=== PATIENT | male | born 1985 | race Caucasian/White ===

== ENCOUNTER 2025-08-09 22:33 | Emergency (ER) | payer MEDICAID, SELFPAY ==
[2025-08-09 22:39] VITALS: BP 160/95; PULSE 90; RESP 16; TEMP 36.8; O2SAT 97
[2025-08-09 22:42] VITALS: BP 160/95; PULSE 90; RESP 16; TEMP 36.8; O2SAT 97
--- NOTE | 2025-08-09 23:15 | ED.GENADUL_ITS ---
Discharge Plan Disposition Patient Disposition: Against Medical Advice Condition: Stable Discharge Details Clinical Impression: Cat bite of middle finger Primary Care Provider: None,None ED Provider: Nancy Smiley Home Meds and New Rx's Prescriptions: New amoxicillin-pot clavulanate 875-125 mg tablet 1 tab PO BID 9 Days Qty: 18 0RF Discharge Instructions Instructions: Animal Bites ED Additional Instructions: You were seen in the emergency department today for evaluation of a cat bite. In our department you to full physical examination performed, your wound was l oosely closed with 4 sutures that need to be removed in 7 to 10 days. As we discussed, you would benefit from treatment with the rabies vaccine series given that this was a feral cat that is not able to be observed, and at this time you have declined this intervention. You have also declined your tetanus vaccine. I did provide you with a prescription for antibiotics and strongly recommend that you take the entire course as Bites have a very high risk of getting infected. You understand that the risks of refusing these intervention include infection of your finger that may lead to systemic infection known as sepsis, loss of the finger, severe illness or disability, and in the case of rabies, tetanus, and severe sepsis can lead to . You understand that you can return to the emergency department at any time to receive care, those certainly rabies vaccines lose effectiveness over time after exposure. Please keep the area clean and dry, use antibiotic ointment at least once per day for the first 5 to 7 days, and keep it covered with a clean dressing. You were started on antibiotics and should take all this medication until it is gone, even if you start to feel better. If you notice signs of infection such as redness streaking up your finger and hand, pus draining from the area, or fever please return to the emergency department immediately for reevaluation. Please follow-up with your primary care provider in the next few days to discuss this visit and any symptoms that change, worsen, or persist. Thank you for allowing us to be part of your care. HPI General Mode of arrival: ambulatory . Date/Time Provider Initiated Documentation: 08/09/25 22:39 . Limitations to Documentation: no limitations . Information obtained by: patient and old records reviewed . HPI Narrative: This is a 39-year-old male patient presenting for evaluation of a cat bite. The patient states that a stray cat got into his house and he was trying to get it out, it bit and tore at his right middle finger. He states that he immediately rinsed it with cold water, bleeding was controlled with direct pressure and gauze. He states that the cat ran away and is not known to him to be vaccinated. He states that he did not sustain any injuries in any other areas, thinks his last tetanus shot was more than 10 years ago, has otherwise been in his normal state of health. Related Data Home Medications ?Medication ?Instructions ?Recorded ?Confirmed amoxicillin 875 mg-potassium 1 tab PO BID 9 days #18 t abs 08/09/25 clavulanate 125 mg tablet Previous Rx's ?Medication ?Instructions ?Recorded amoxicillin 875 mg-potassium 1 tab PO BID 9 days #18 t abs 08/09/25 clavulanate 125 mg tablet Allergies Allergy/AdvReac Type Severity Reaction Status Date / Time No Known Allergies Allergy Verified 08/09/25 22:46 General Stated Complaint: AnimalBite SUSU: 3 Exam Narrative Exam Narrative: Gen: Awake and alert, in no apparent distress HEENT: Non-icteric sclera Neck: Supple Lungs: No apparent respiratory distress, normal respiratory effort. CV: Appears well perfused Abdomen: Non-distended MSK: Moves 4 extremities without apparent limitation in ROM. The patient's right middle finger has a laceration across the distal pad, with exposure of placido pose tissue and some shards of macerated skin. He does have a abrasion to the very tip of the third middle finger. He has full range of motion and full resisted flexion at both the DIP and PIP, without active bleeding. Brisk capillary refill and no reported sensory deficits. Skin: Visualized skin without rashes, cyanosis. Neuro: Normal Gait, no obvious focal deficits or facial asymmetry. Speaks in full, clear sentences. Psych: Appropriate for situation. Course Vital Signs Vital signs: Vital Signs Temperature 36.8 C 08/09/25 22:39 Pulse 90 08/09/25 22:39 Respiratory Rate 08/09/25 22:39 Blood Pressure 160/95 H 08/09/25 22:39 Pulse Oximetry 97 08/09/25 22:39 Temperature 36.8 C 08/09/25 22:42 Temperature Source Tympanic 08/09/25 22:42 Pulse 90 08/09/25 22:42 Respiratory Rate 16 08/09/25 22:42 Blood Pressure 160/95 H 08/09/25 22:42 Blood Pressure Position Sitting 08/09/25 22:42 Pulse Oximetry 97 08/09/25 22:42 Oxygen Delivery Method Room Air 08/09/25 22:42 Oxygen Flow Rate 0 08/09/25 22:42 Pain Level 4 08/09/25 22:42 Procedure Laceration Laceration 1: Date of Procedure: 08/10/25 Time of procedure: 22:40 Provider that performed the procedure: Nancy Smiley Standard Time Out Performed: No Patient Consented: Verbally Site: hand Side (If applicable): right Description: linear Depth: simple, single layer Pre-repair:: wound explored, irrigated extensively, deep structures intact and wound margins revised Skin layer closed with: nylon Suture size: 5-0 Number of sutures:: 4 Technique: simple, interrupted Complications: None Procedure Description/Note: After anesthetization with 2 mL of lido 1% without epi, the wound was thoroughly cleansed and the macerated tissue and edges were clipped away. The wound was thoroughly explored, the distal tendon is intact, and the adipose tissue was replaced within the wound bed. The wound edges were loosely approximated with 4 sutures as noted above, the wound was hemostatic at the completion of this procedure with good cosmetic outcome achieved. The wound was dressed with bacitracin and an adhesive bandage. Medical Decision Making This is a 39-year-old male patient presenting for evaluation after cat bite. My differential includes but is not limited to laceration and soft tissue injury, no evidence for tendon injury, the wound was thoroughly cleansed and I do not note any evidence of foreign body, mechanism less concerning for fracture. Certainly considered exposure to rabies given the fact that this was an outdoor cat, and they do not have any ability to monitor this animal for development of symptoms. Finally, I considered potential for infection, though the brief duration of symptoms is reassuring against active infection at this time. The laceration was thoroughly cleansed, and repaired/loosely approximated as noted above. The patient tolerated this procedure well. Initially the patient was amenable to receiving rabies vaccines, immunoglobulin, and tetanus booster. Unfortunately, when those medications were brought to his room to be administered, he declined and states that he wants to do his own research first. I had an extended conversation with this patient regarding this AGAINST MEDICAL ADVICE decision, given the time sensitive nature of rabies immunoglobulin and vaccine administration. Additionally, the patient states that he is not sure if he wants to take the antibiotics. These were provided to him regardless given the very high risk of infection in these wounds. The patient understands that the risks of refusing the recommended treatment include threat to life and limb, localized or systemic infection, development of rabies or tetanus which could lead to neuro compromise, hospitalization, and . The patient understands that he can always return to care for reevaluation if he decides to proceed with vaccination. I counseled him to take all of the antibiotic provided (Augmentin) until it is gone, even if he starts to feel better, and counseled him on wound care and suture removal in 7 to 10 days. The patient left our facility after signing AGAINST MEDICAL ADVICE paperwork, demonstrates capacity to make this choice and had an opportunity to have all questions answered. Remained hemodynamically appropriate while under my care. Nancy Smiley MD [facility] Social History Smoking/Tobacco Use Status: Current every day Tobacco Type: cigarettes Smoking risk assessment performed?: Yes Alcohol Intake: never Drug use: Never Substance use type: does not use Do you feel safe at home: Yes Do you feel safe in your relationship?: Yes
[2025-08-09] MEDS: Amox. 875/Clav. 125, 2 TABS/BTL 1 TAB PO (23:48)
== END 2025-08-09 23:52 | disposition left against medical advice (07) ==
PROVIDERS: Emergency Provider Emergency Medicine
DX: S60.472A Other superficial bite of right middle finger, initial encounter (principal); Z23 Encounter for immunization; W55.01XA Bitten by cat, initial encounter; Y93.89 Activity, other specified
CPT/HCPCS: 12001; 90471; 90472; 96372; 99283